=== PATIENT | male | born 1945 | race Caucasian/White ===

== ENCOUNTER → 2018-08-14 | Outpatient (CLI) | payer BC, OTHER | LOC: RAD 10:57 | DX: J98.4 Other disorders of lung (principal); I77.819 Aortic ectasia, unspecified site ==

== ENCOUNTER 2019-10-07 16:24 | Emergency (ER) | payer BC, OTHER ==
[~2019-10-07] VITALS: Ht 170.2 cm; Wt 96.6 kg
[2019-10-07] MEDS ORDERED: BUPROPION XL150 MG PO (16:47)
[2019-10-07] MEDS ORDERED: CARVEDILOL12.5 MG PO (16:47)
[2019-10-07] MEDS ORDERED: LIPITOR 40 MG T40 M1 PO (16:47)
[2019-10-07] MEDS ORDERED: LOSARTAN POTAS100 MG PO (16:48)
[2019-10-07] MEDS ORDERED: SPIRONOLACTONE25 MG PO (16:48)
[2019-10-07] MEDS ORDERED: SARAFEM20 MG PO (16:49)
[2019-10-07] MEDS ORDERED: ASA81BEC PO (16:49)
[2019-10-07] MEDS ORDERED: TIROSINT88 MCG PO (16:49)
[2019-10-07] MEDS ORDERED: FLOMAX0.4 MG PO (16:49)
[2019-10-07] MEDS ORDERED: FISH OIL 1,0001 EAC9 PO (16:49)
[2019-10-07] MEDS ORDERED: HYDROXYZINE HCL10 M2 PO (16:50)
[2019-10-07 18:41] LABS: ABSOLUTE NEUTROPHILS 4.5 thou/uL (1.4-8.2); BASOPHILS 0.7 % (0.0-2.0); EOSINOPHILS 2.4 % (0.0-3.0); HEMATOCRIT 35.5 % (42.0-52.0); HEMOGLOBIN 12.4 gm/dL (14.0-18.0); LYMPHOCYTES 31.1 % (24.0-44.0); MCH 31.2 pg (26.0-34.0); MCV 89.2 fL (80.0-100.0); MONOCYTES 10.1 % (1.0-8.0); PLATELET COUNT 258 thou/uL (150-400); POLYS 55.7 % (36.0-66.0); RBC 3.98 mil/uL (4.50-6.00); RDW 13.6 % (10.5-14.5)
[2019-10-07 18:45] LABS: CALCIUM 8.1 mg/dL (8.5-10.1); CREATININE 1.3 mg/dL (0.7-1.3); POTASSIUM 4.6 mmol/L (3.5-5.1)
[2019-10-07 20:24] VITALS: BP 209/101
== END 2019-10-07 20:24 | disposition home or self-care (01) ==
LOC: ER 16:24
PROVIDERS: Emergency Medicine
DX: I10 Essential (primary) hypertension (principal); Z88.0 Allergy status to penicillin; Z79.899 Other long term (current) drug therapy